=== PATIENT | female | born 1955 | race Caucasian/White ===

== ENCOUNTER 2018-02-10 19:11 | Emergency (ER) | payer OTHER ==
[~2018-02-10] VITALS: Ht 160 cm; Wt 72.6 kg
[2018-02-10 19:37] VITALS: Ht 160 cm; Wt 72.6 kg
[2018-02-10 20:36] VITALS: BP 155/72
== END 2018-02-10 20:36 | disposition home or self-care (01) ==
LOC: ED 19:11
DX: S01.01XA Laceration without foreign body of scalp, initial encounter (principal); E03.9 Hypothyroidism, unspecified; W22.8XXA Striking against or struck by other objects, initial encounter; Y93.89 Activity, other specified; Y92.89 Other specified places as the place of occurrence of the external cause; Y99.8 Other external cause status
CPT/HCPCS: J2001